=== PATIENT | male | born 1995 | race Two or more races ===

== ENCOUNTER 2016-10-23 22:42 | Emergency (ER) | payer SELFPAY ==
[2016-10-23] MEDS ORDERED: Ketorolac 30 MG/ML SDV IVPUSH ONE (23:06)
[2016-10-23] MEDS ORDERED: Sodium Chloride 0.9% 1,000 ML IV ONE (23:06)
[2016-10-23] MEDS ORDERED: Ondansetron 4 MG/2 ML SDV IV ONE (23:06)
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
[2016-10-23 23:42] LABS: CHLORIDE,CL 103 mmol/L (101-111); SODIUM,NA 138 mmol/L (135-145)
[2016-10-24 00:29] VITALS: BP 129/80
== END 2016-10-24 00:12 | disposition home or self-care (01) ==
LOC: DL.ED 22:42
DX: G43.919 Migraine, unspecified, intractable, without status migrainosus (principal)
CPT/HCPCS: 36415; 80053; 85025; 96365; 96375; 99283; J1885; J2405; J7030; 99284

== ENCOUNTER 2016-12-03 23:23 | Emergency (ER) | payer MEDICAID ==
[2016-12-03 23:24] VITALS: BP 125/68
--- NOTE | 2016-12-03 23:30 | EDM.PDOC ---
ED HPI GENERAL MEDICAL PROBLEM - General Chief Complaint: General Stated Complaint: AMBULANCE Time Seen by Provider: 12/03/16 23:27 Source of Information: Reports: Patient, EMS History Limitations: Reports: No Limitations - History of Present Illness INITIAL COMMENTS - FREE TEXT/NARRATIVE: Pt states was driving around town felt like body is shutting down, numbness tingling all over, had this before but never had it eval' also gives h/o anxiety but not seen anyone for it not taking any Rx. EMS arrived Pt was hyperventilating. - Related Data Allergies Allergy/AdvReac Type Severity Reaction Status Date / Time No Known Allergies Allergy Verified 12/03/16 23:37 Home Meds: Home Meds . [No Known Home Meds] 12/26/14 [History] Past Medical History - Past Health History Medical/Surgical History: Denies Medical/Surgical History Social & Family History - Tobacco Use Smoking Status *Q: Never Smoker Second Hand Smoke Exposure: Yes - Caffeine Use Caffeine Use: Reports: Soda - Recreational Drug Use Recreational Drug Use: No - Living Situation & Occupation Living situation: Reports: with Family ED ROS GENERAL - Review of Systems Review Of Systems: ROS reveals no pertinent complaints other than HPI. ED EXAM, GENERAL - Physical Exam Exam: See Below Exam Limited By: No Limitations General Appearance: Alert, WD/WN, Anxious, Mild Distress Eye Exam: Bilateral Eye: PERRL (pupils ER @ 4mm) Ears: Hearing Grossly Normal Throat/Mouth: Normal Voice, No Airway Compromise Head: Atraumatic Neck: Non-Tender, Full Range of Motion Respiratory/Chest: No Respiratory Distress Cardiovascular: Regular Rate, Rhythm GI/Abdominal: Soft, Non-Tender Neurological: Alert, Oriented, Normal Cognition, Normal Gait, No Motor/Sensory Deficits Psychiatric: Flat Affect Skin Exam: Warm, Dry Lymphatic: No Adenopathy Course - Vital Signs Last Recorded V/S: Last Vital Signs Temp 37.1 C 12/03/16 23:28 Pulse 99 12/03/16 23:28 Resp 16 12/03/16 23:28 BP 125/68 12/03/16 23:28 Pulse Ox 99 12/03/16 23:28 - Orders/Labs/Meds Labs: Laboratory Tests 12/03/16 12/03/16 12/03/16 Range/Units 23:24 23:35 23:35 WBC 12.4 H (5.0-10.0) 10^3/uL RBC 5.45 (4.6-6.2) 10^6/uL Hgb 15.7 (14.0-18.0) g/dL Hct 46.0 (40.0-54.0) % MCV 84.4 (80-100) fL MCH 28.8 (27.0-34.0) pg MCHC 34.1 (33.0-35.0) g/dL Plt Count 174 (150-450) 10^3/uL Neut % (Auto) 92.7 H (42.2-75.2) % Lymph % (Auto) 4.2 L (20.5-50.1) % [place] % (Auto) 2.6 (2-8) % Eos % (Auto) 0.5 L (1.0-3.0) % Baso % (Auto) 0.0 (0.0-1.0) % Sodium 142 (135-145) mmol/L Potassium 3.7 (3.6-5.0) mmol/L Chloride 104 (101-111) mmol/L Carbon Dioxide 27.0 (21.0-31.0) mmol/L Anion Gap 14.7 BUN 13 (7-18) mg/dL Creatinine 1.0 (0.6-1.3) mg/dL Est Cr Clr Drug Dosing 125.50 mL/min Estimated GFR (MDRD) > 60 BUN/Creatinine Ratio 13.00 Glucose 106 H (74-105) mg/dL Calcium 9.2 (8.4-10.2) mg/dl Total Bilirubin 1.4 H (0.2-1.0) mg/dL AST 21 (10-42) IU/L ALT 23 (10-60) IU/L Alkaline Phosphatase 56 (42-121) IU/L Total Protein 7.4 (6.7-8.2) g/dl Albumin 4.4 (3.2-5.5) g/dl Globulin 3.0 Albumin/Globulin Ratio 1.47 Urine Opiates Screen Negative (NEGATIVE) Ur Oxycodone Screen Negative (NEGATIVE) Urine Methadone Screen Negative (NEGATIVE) Ur Barbiturates Screen Negative (NEGATIVE) U Tricyclic Antidepress Negative (NEGATIVE) Ur Phencyclidine Scrn Negative (NEGATIVE) Ur Amphetamine Screen Negative (NEGATIVE) U Methamphetamines Scrn Negative (NEGATIVE) Urine MDMA Screen Negative (NEGATIVE) U Benzodiazepines Scrn Negative (NEGATIVE) Urine Cocaine Screen Negative (NEGATIVE) U Marijuana (THC) Screen Negative (NEGATIVE) Ethyl Alcohol < 5 mg/dL - Re-Assessments/Exams Free Text/Narrative Re-Assessment/Exam: 12/04/16 00:12 results discussed with Pt & family. feeling much better now. Departure - Departure Time of Disposition: 00:13 Disposition: Home, Self-Care 01 Condition: Good Clinical Impression: Situational anxiety - Discharge Information Instructions: Panic Attacks, [id number] Forms: ED Department Discharge Additional Instructions: 1) rest 2) follow up at clinic or [facility] for councelling rx given; hydroxyzine 25mg bid prn x 12
[2016-12-04 00:01] LABS: CHLORIDE,CL 104 mmol/L (101-111); SODIUM,NA 142 mmol/L (135-145)
[2016-12-04] MEDS ORDERED: LORazepam 1 MG Tab PO ONE (00:13)
== END 2016-12-04 00:30 | disposition home or self-care (01) ==
LOC: DL.ED 23:23
DX: F41.9 Anxiety disorder, unspecified (principal)
CPT/HCPCS: 36415; 80053; 80305; 85025; 99283; 99284; A9270; G0480

== ENCOUNTER 2017-08-05 22:52 | Emergency (ER) | payer MEDICAID ==
[2017-08-05] MEDS ORDERED: Ketorolac 30 MG/ML SDV IVPUSH ONE (23:40)
[2017-08-05] MEDS ORDERED: Ondansetron 4 MG/2 ML SDV IV ONE (23:40)
[2017-08-05] MEDS ORDERED: Sodium Chloride 0.9% 500 ML IV SCH (23:45)
[2017-08-06] MEDS ORDERED: Butorphanol 2 MG/ML SDV IVPUSH ONE (00:40)
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
[2017-08-06 01:11] VITALS: BP 142/71
== END 2017-08-06 01:16 | disposition home or self-care (01) ==
LOC: DL.ED 22:52
DX: G43.909 Migraine, unspecified, not intractable, without status migrainosus (principal); Z79.899 Other long term (current) drug therapy; Z91.040 Latex allergy status; Z77.22 Contact with and (suspected) exposure to environmental tobacco smoke (acute) (chronic)
CPT/HCPCS: 96365; 96375; 99283; J0595; J1885; J2405; J7040

== ENCOUNTER 2017-08-29 22:10 | Emergency (ER) | payer MEDICAID ==
[2017-08-29] MEDS: Sodium Chloride 0.9% 1,000 ML IV ONE (23:08)
[2017-08-29] MEDS: diphenhydrAMINE 50 MG/ML SDV IVPUSH ONE (23:10)
[2017-08-29] MEDS: Ondansetron 4 MG/2 ML SDV IV ONE (23:10)
[2017-08-29] MEDS: Famotidine 20 MG/2 ML SDV IVPUSH ONE (23:16)
[2017-08-29 23:35] LABS: CHLORIDE,CL 106 mmol/L (101-111); SODIUM,NA 141 mmol/L (135-145)
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
[2017-08-30 00:26] VITALS: BP 129/69
== END 2017-08-30 00:29 | disposition home or self-care (01) ==
LOC: DL.ED 22:10
DX: G44.009 Cluster headache syndrome, unspecified, not intractable (principal); Z88.6 Allergy status to analgesic agent; Z91.040 Latex allergy status
CPT/HCPCS: 36415; 80053; 85025; 96374; 96375; 99283; J1200; J2405; J7030; S0028

== ENCOUNTER 2017-08-30 20:59 | Emergency (ER) | payer MEDICAID ==
[2017-08-30 21:03] VITALS: BP 137/65
[2017-08-30] MEDS: Butorphanol 2 MG/ML SDV IM ONE (22:11)
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
== END 2017-08-30 22:43 | disposition home or self-care (01) ==
LOC: DL.ED 20:59
DX: G44.009 Cluster headache syndrome, unspecified, not intractable (principal); Z91.040 Latex allergy status; Z88.6 Allergy status to analgesic agent
CPT/HCPCS: 80305; 81001; 96372; 99284; J0595

== ENCOUNTER 2017-09-12 21:14 | Emergency (ER) | payer MEDICAID ==
[2017-09-12 22:18] VITALS: BP 139/63
[2017-09-12] MEDS ORDERED: Sodium Chloride 0.9% 10 ML Syringe FLUSH PRN (22:32)
[2017-09-12] MEDS ORDERED: Sodium Chloride 0.9% 1,000 ML IV ONE (22:41)
[2017-09-12] MEDS ORDERED: Ketorolac 30 MG/ML SDV IVPUSH ONE (22:41)
[2017-09-12] MEDS ORDERED: Ondansetron 4 MG/2 ML SDV IV ONE (22:41)
[2017-09-12 23:05] LABS: CHLORIDE,CL 106 mmol/L (101-111); SODIUM,NA 141 mmol/L (135-145)
[2017-09-12] MEDS ORDERED: Butorphanol 2 MG/ML SDV IVPUSH ONE (23:51)
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
== END 2017-09-13 00:44 | disposition home or self-care (01) ==
LOC: DL.ED 21:14
DX: G44.009 Cluster headache syndrome, unspecified, not intractable (principal); J45.909 Unspecified asthma, uncomplicated; Z79.899 Other long term (current) drug therapy; Z88.8 Allergy status to other drugs, medicaments and biological substances; Z91.040 Latex allergy status
CPT/HCPCS: 36415; 80053; 80305; 81001; 85025; 96361; 96374; 96375; 99283; J0595; J1885; J2405; J7030; J7050

== ENCOUNTER 2019-04-24 08:14 | Emergency (ER) | payer MEDICAID ==
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
[2019-04-24] MEDS ORDERED: Diphtheria,Pertussis(Acell),Tetanus Vaccine 0.5 ML SDV IM ONE (08:24)
[2019-04-24 08:37] VITALS: BP 131/81; PULSE 90
== END 2019-04-24 09:10 ==
LOC: DL.ED 08:14
DX: S00.531A Contusion of lip, initial encounter (principal); S00.83XA Contusion of other part of head, initial encounter; S20.411A Abrasion of right back wall of thorax, initial encounter; R04.0 Epistaxis; J45.909 Unspecified asthma, uncomplicated; Z88.6 Allergy status to analgesic agent; Z91.040 Latex allergy status; Z23 Encounter for immunization; Y04.2XXA Assault by strike against or bumped into by another person, initial encounter; Y92.149 Unspecified place in prison as the place of occurrence of the external cause
CPT/HCPCS: 70450; 70486; 90471; 90715; 99283-25